=== PATIENT | female | born 2005 | race Caucasian/White ===

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

== ENCOUNTER → 2024-11-20 | Outpatient (CLI) | payer OTHER ==
[2024-11-20 10:23] LABS: BASO # 0.1 10^3/uL (0.0-0.2); BASO % 0.7 % (0.0-1.0); EOS # 0.1 10^3/uL (0.0-0.5); EOS % 1.7 % (0.0-3.0); HEMATOCRIT 32.7 % (36.0-47.0); LYMPH % 28.4 % (24.0-44.0); MEAN CORPUSCULAR HEMOGLOBIN 23.3 pg (27.0-33.0); MEAN CORPUSCULAR HGB CONC 30.6 g/dl (32.0-36.5); MONO # 0.4 10^3/uL (0.0-0.8); MONO % 5.1 % (2.0-8.0); NEUTROPHILS # 4.5 10^3/uL (1.5-8.5); NEUTROPHILS % 63.8 % (36.0-66.0); PLATELET COUNT, AUTOMATED 317 10^3/uL (150-450); WHITE BLOOD COUNT 7.1 10^3/uL (4.0-10.0)
[2024-11-20 10:50] LABS: HEMOGLOBIN A1c 5.3 % (4.0-6.0)
[2024-11-20 10:51] LABS: CHOLESTEROL RISK RATIO 3.43 (<5); HDL CHOLESTEROL 39.9 MG/DL (>40); LDL CHOLESTEROL 85.9 MG/DL (<100); NON-HDL-C 97.1 MG/DL
[2024-11-20 10:53] LABS: THYROID STIMULATING HORMONE 2.567 uIU/ML (0.48-4.17)
[2024-11-20 10:54] LABS: FREE T4 1.02 NG/DL (0.83-1.43); TOTAL 25(OH) VITAMIN D 31.2 NG/ML (20.0-100.0)
== END ==
LOC: M LAB 09:35
PROVIDERS: ATTEND Physician Assistant
DX: L83 Acanthosis nigricans (principal)